=== PATIENT | female | born 2000 | race Caucasian/White ===

== ENCOUNTER 2020-04-11 11:32 | Inpatient (IN) | payer OTHER ==
[~2020-04-11] VITALS: Ht 157.5 cm; Wt 69.4 kg
[2020-04-11] MEDS ORDERED: SERT100T12 PO (11:54)
[2020-04-11] MEDS ORDERED: LAMO100 PO (11:54)
[2020-04-11] MEDS ORDERED: ACAM333T7 PO (11:54)
[2020-04-11] MEDS ORDERED: TRAZ-257 PO (11:54)
[2020-04-11] MEDS ORDERED: FOLI0.4T92 PO (11:54)
[2020-04-11] MEDS ORDERED: QUET25TA PO (11:54)
[2020-04-11] MEDS ORDERED: BUPR-93 PO (11:54)
[2020-04-11] MEDS ORDERED: ARIP5TAB8 PO (11:54)
[2020-04-11] MEDS ORDERED: QUET100T PO (11:54)
[2020-04-11 12:06] VITALS: BP 102/58
[2020-04-11] MEDS ORDERED: ZOLPIDEM TARTRATE 10 MG TABLET PO PRN (12:30)
[2020-04-11] MEDS ORDERED: HydrOXYzine PAMOATE 50 MG CAPSULE PO PRN (12:30)
[2020-04-11] MEDS ORDERED: MAGNESIUM HYDROXIDE SUSPENSION 30 ML UDCUP PO PRN (12:30)
[2020-04-11] MEDS ORDERED: TUBERCULIN, PURIFIED PROTEIN DERIVATIVE 5 TU/0.1 ML SYRINGE ID ONE (12:30)
[2020-04-11] MEDS ORDERED: QUEtiapine FUMARATE 100 MG TABLET PO PRN (12:30)
[2020-04-11] MEDS ORDERED: LOPERAMIDE HCL 2 MG CAPSULE PO PRN (12:30)
[2020-04-11] MEDS ORDERED: GuaiFENesin/D-METHORPHAN [SUGAR-FREE] 200-20MG/10 ML SYRUP UDCUP PO PRN (12:30)
[2020-04-11] MEDS ORDERED: ACETAMINOPHEN 325 MG TABLET PO PRN (12:30)
[2020-04-11] MEDS ORDERED: CYANOCOBALAMIN 1,000 MCG/ML VIAL IM ONE (12:30)
[2020-04-11] MEDS ORDERED: LORazepam 2 MG TABLET PO PRN (12:30)
[2020-04-11] MEDS ORDERED: MAG HYDROX/AL HYDROX/SIMETH ES 30 ML SUSPENSION UDCUP PO PRN (12:30)
[2020-04-11] MEDS ORDERED: PROMETHAZINE HCL 25 MG TABLET PO PRN (12:30)
[2020-04-11 15:09] VITALS: BP 121/78
[2020-04-11 15:30] VITALS: BP 105/63
[2020-04-11 16:35] VITALS: BP 105/63
[2020-04-11] MEDS: THIAMINE 100 MG TABLET PO SCH (16:47)
[2020-04-11 19:30] VITALS: BP 111/63
[2020-04-11] MEDS: QUEtiapine FUMARATE 100 MG TABLET PO SCH (20:45)
[2020-04-11] MEDS: TraZODone HCL 100 MG TABLET PO SCH (20:46)
[2020-04-12] VITALS: BP 108/82
[2020-04-12 05:28] VITALS: BP 103/57
[2020-04-12] MEDS ORDERED: LORazepam 2 MG TABLET PO PRN (07:00)
[2020-04-12 08:29] LABS: BASOPHILS % (AUTO) 1.3 % (0.0-2.0); EOSINOPHILS % (AUTO) 3.8 % (1.0-6.0); HEMATOCRIT 39.4 % (36-46); LYMPHOCYTES # (AUTO) 1.8 K/uL (1.0-4.8); LYMPHOCYTES % (AUTO) 32.5 % (22.0-44.0); MEAN CORPUSCULAR HEMOGLOBIN 29.4 pg (26.0-34.0); MEAN CORPUSCULAR HGB CONC 32.9 G/dL (31.0-37.0); MEAN CORPUSCULAR VOLUME 89 fL (80-100); MONOCYTES # (AUTO) 0.7 K/uL (0.1-1.0); MONOCYTES % (AUTO) 12.2 % (2.0-9.0); NEUTROPHILS # (AUTO) 2.9 K/uL (1.8-7.7); NEUTROPHILS % (AUTO) 50.2 % (40.0-70.0); PLATELET COUNT (AUTO) 305 K/uL (150-450); RED BLOOD CELL COUNT(AUTO) 4.42 MIL/uL (4.00-5.20); RED CELL DISTRIBUTION WIDTH 14.5 % (11.5-14.5)
[2020-04-12 08:51] LABS: ALANINE AMINOTRANSFERASE 21 U/L (12-78); ALBUMIN 3.5 g/dL (3.4-5.0); ALKALINE PHOSPHATASE 71 U/L (46-116); ANION GAP 3 mmol/L (8-16); ASPARTATE AMINOTRANSFERASE 16 U/L (15-37); BILIRUBIN,TOTAL 0.4 mg/dL (0.1-1.0); CALCIUM, TOTAL 8.8 mg/dL (8.8-10.5); CARBON DIOXIDE 28 mmol/L (22-29); CHLORIDE 103 mmol/L (98-107); CHOL/HDL RATIO 2.1 (3.9-5.7); CHOLESTEROL 172 mg/dL (131-200); CREATININE 0.69 mg/dL (0.60-1.30); FREE T4 (FREE THYROXINE) 0.81 ng/dL (0.76-1.46); GLOMERULAR FILTR. RATE CALC > 60 mL/min (>60); GLUCOSE,RANDOM 78 mg/dL (70-110); HCG,QUANTITATIVE 1 mIU/mL (0-6); HDL CHOLESTEROL 81 mg/dL (40-60); LDL CHOL (CALC.) 82 mg/dL (0-130); POTASSIUM 3.3 mmol/L (3.5-5.1); SODIUM SERUM 134 mmol/L (136-145); THYROID STIMULATING HORMONE 1.43 uIU/mL (0.36-3.74); TRIGLYCERIDES 44 mg/dL (15-150); UREA NITROGEN, BLOOD 17 mg/dL (7-18)
[2020-04-12 08:54] LABS: HEMOGLOBIN A1C 4.9 % (3.8-5.6)
[2020-04-12] MEDS: NICOTINE 14 MG/24 HOUR PATCH TD SCH (09:00)
[2020-04-12] MEDS ORDERED: OMEGA-3/DHA/EPA/FISH OIL 1,000 MG CAPSULE PO SCH (09:00)
[2020-04-12] MEDS: SERTRALINE HCL 100 MG TABLET PO SCH (09:13)
[2020-04-12] MEDS: NALTREXONE HCL 50 MG TABLET PO SCH (09:13)
[2020-04-12] MEDS: FOLIC ACID 1 MG TABLET PO SCH (09:14)
[2020-04-12] MEDS: MULTIVITAMINS WITH MINERALS, THERAPEUTIC TABLET PO SCH (09:14)
[2020-04-12] MEDS: LORazepam 2 MG TABLET PO SCH ×4 (09:14→20:10)
[2020-04-12] MEDS: LamoTRIgine 100 MG TABLET PO SCH (09:14)
[2020-04-12] MEDS: THIAMINE 100 MG TABLET PO SCH ×2 (09:14→16:44)
[2020-04-12 09:56] VITALS: BP 107/60
[2020-04-12 13:19] VITALS: BP 111/68
[2020-04-12 16:07] VITALS: BP 109/73
[2020-04-12 19:12] VITALS: BP 109/73
[2020-04-12] MEDS ORDERED: POTASSIUM CHLORIDE 20 MEQ ER TABLET PO ONE (19:15)
[2020-04-12] MEDS: TraZODone HCL 100 MG TABLET PO SCH (20:10)
[2020-04-12] MEDS: QUEtiapine FUMARATE 100 MG TABLET PO SCH (20:11)
[2020-04-13 01:38] VITALS: BP 108/75
[2020-04-13 04:41] VITALS: BP 108/75
[2020-04-13] MEDS: LamoTRIgine 100 MG TABLET PO SCH (08:32)
[2020-04-13] MEDS: FOLIC ACID 1 MG TABLET PO SCH (08:32)
[2020-04-13] MEDS: SERTRALINE HCL 100 MG TABLET PO SCH (08:32)
[2020-04-13] MEDS: MULTIVITAMINS WITH MINERALS, THERAPEUTIC TABLET PO SCH (08:32)
[2020-04-13] MEDS: NALTREXONE HCL 50 MG TABLET PO SCH (08:32)
[2020-04-13] MEDS: THIAMINE 100 MG TABLET PO SCH ×2 (08:32→17:08)
[2020-04-13] MEDS: LORazepam 2 MG TABLET PO SCH ×2 (08:33→12:49)
[2020-04-13] MEDS: NICOTINE 14 MG/24 HOUR PATCH TD SCH (08:38)
[2020-04-13 08:39] VITALS: BP 109/60
[2020-04-13 09:00] VITALS: BP 109/60
[2020-04-13] MEDS ORDERED: LAMO100 PO (14:39)
[2020-04-13] MEDS ORDERED: TRAZ-257 PO (14:39)
[2020-04-13] MEDS ORDERED: QUET100T33 PO (14:39)
[2020-04-13] MEDS ORDERED: NALT50TA PO (14:39)
[2020-04-13] MEDS ORDERED: OMEG-136 PO (14:41)
[2020-04-13 16:05] VITALS: BP 118/71
[2020-04-14] MEDS ORDERED: LORazepam 1 MG TABLET PO PRN (07:00)
[2020-04-14] MEDS ORDERED: LORazepam 1 MG TABLET PO SCH (09:00)
[2020-04-14] MEDS ORDERED: OMEGA-3/DHA/EPA/FISH OIL 1,000 MG CAPSULE PO SCH (09:00)
[2020-04-14] MEDS ORDERED: LOPERAMIDE HCL 2 MG CAPSULE PO PRN (12:30)
[2020-04-15] MEDS ORDERED: LORazepam 1 MG TABLET PO PRN (07:00)
== END 2020-04-13 17:20 | disposition home or self-care (01) | DRG 885 ==
LOC: B2S 13:06
PROVIDERS: ADMIT Psychiatry & Neurology Psychiatry; ATTEND Psychiatry & Neurology Psychiatry
DX: F31.9 Bipolar disorder, unspecified (principal); E87.6 Hypokalemia; Z91.19 Patient's noncompliance with other medical treatment and regimen
CPT/HCPCS: 83036; 84439; 84443; 86592; 87081; J3420